=== PATIENT | male | born 1960 | race African-American/Black ===

== ENCOUNTER 2021-06-07 12:23 | Inpatient (IN) | payer OTHER ==
[2021-06-07] VITALS (8 sets, daily range): BP systolic 111–148; BP diastolic 40–100
[~2021-06-07] VITALS: Ht 175.3 cm; Wt 63.4 kg
--- NOTE | ~2021-06-07 | EMS ---
[address] [address] EMS Patient Care Report Name: ELVIE GARNER Room #: REG HARRY Ramos#: [id number] Admission: 06/07/21 Attend Phys: Discharge: Date of : 58 Report #: [id number] THIS REPORT FOR: //name// Report Transmitted: 06/07/2021 14:33 EMS Care Summary [place], [place]/[facility] Incident [id number] @ 06/07/2021 11:31 Incident Location 25500 IDAY 200 A Patient ELVIE GARNER Male, 61 Years 1960 Patient Address [address] [place] [address] [place] [address] Patient History None Reported, Patient Allergies No known allergies, Chief Complaint syncope Disposition Transported No Lights/[place] Dispatch Reason Falls Transported To [facility] Narrative pt was standing at the bathroom sink, brushing his teeth and had a syncopal episode. bystander reports pt hit his head, no obv trauma. pt is found on floor , awake but very confused, by [place] crew. they moved him to [place], where we find him on arrival. pt is diaphoretic and hypotensive, BP 88/60. he opens eyes to verbal but is confused and unable to follow simple commands. pt [facility] [address] [place] [address] EMS Patient Care Report Name: ELVIE GARNER Room #: MATT Ramos#: [id number] Admission: 06/07/21 Attend Phys: Discharge: Date of : 58 Report #: [id number] denies CP or SOB, no recent illness. pt moved to cot and feet elevated. pt loses control of bowel once moved to cot. tx as listed on flow chart. transport non emergency to pt choice, [facility]. pt BP improves during transport, pt more coherent. report to staff on arrival, rm 1. Initial Vitals @12:05P: 88,R: 18,BP: 90/59,Pain: 0/10,GCS: 13,Glucose: 130,Revised Trauma: 12, @12:13P: 87,R: 18,BP: 108/83,Pain: 0/10,GCS: 14,SpO2: 98,Revised Trauma: 12, Assessments @11:46MENTAL:Confused,Place Oriented,Person Oriented,SKIN:Diaphoresis,HEENT:LUNG SOUNDS:ABDOMEN:PELVIS//GI:Incontinence,EXTREMITIES:PULSE:Radial: 2+ Normal,NEURO:Other,@12:12MENTAL:Time Oriented,Person Oriented,Place Oriented,Event Oriented,SKIN:HEENT:LUNG SOUNDS:ABDOMEN:PELVIS//GI:EXTREMITIES:PULSE:NEURO: Impression Syncope / Fainting Procedures @11:46 ALS Assessment Response: Unchanged @PTA3-Lead ECG Response: Unchanged @12:00 IV Therapy - Saline Lock 10cc (20 ga) Site: Antecubital-Right Response: UnchangedSucceeded @11:48 Stretcher Response: Unchanged @11:58 12-Lead ECG Response: Unchanged @12:00 IV Therapy - Saline Lock 0cc (20 ga) Site: Antecubital-Left Response: UnchangedFailed @12:03 Oxygen FlowRate: 15 Device: Non Re-breather Mask (NRB) Response: UnchangedSucceeded Timeline FIRE PILOT,3-Lead ECG,Response: Unchanged 11:29,Call Received 11:29,Dispatch Notified 11:31,Dispatched 11:34,En Route 11:43,On Scene 11:46,At Patient 11:46,ALS Assessment,Response: Unchanged 11:48,Stretcher,Response: Unchanged 11:58,12-Lead ECG,Response: Unchanged 12:00,IV Therapy - Saline Lock 0cc 20 ga Site: Antecubital-Left,Response: UnchangedFailed, [address] [address] EMS Patient Care Report Name: GARNER,ELVIE Room #: REG HARRY Ramos#: [id number] Admission: 06/07/21 Attend Phys: Discharge: Date of : 58 Report #: [id number] 12:00,IV Therapy - Saline Lock 10cc 20 ga Site: Antecubital-Right,Response: UnchangedSucceeded, 12:02,Depart Scene 12:03,Oxygen FlowRate: 15 Device: Non Re-breather Mask (NRB) Response: UnchangedSucceeded, 12:05,BP: 90/59 M,PULSE: 88,RR: 18 R,SPO2: Ox,ETCO2: ,B,PAIN: 0,GCS: 13, 12:13,BP: 108/83 M,PULSE: 87,RR: 18 R,SPO2: 98 Ox,ETCO2: ,BG: ,PAIN: 0,GCS: 14, 12:19,At Destination 12:44,Call Closed Disclaimer v1.1 Copyright 2020 [employer] This EMS Care Summary contains data elements from the applicable legal record (which may be displayed differently). It is designed to provide pertinent information for the following purposes: continuity of care, clinical quality, and state data reporting. The complete legal record is available to ED staff and administrators of the receiving hospital in [employer] Patient Tracker. All data is provided "as is."
--- NOTE | 2021-06-07 12:43 | NUR ---
PT SATS 75% ON NC 6L, NRB PLACED ON PATIENT AT 15L/MIN DR ANN AT [facility] AND RT PAGED. PT SLOWLY INCREASED AND IS CURRENTLY AT 97% ON NRB 15L/MIN
[2021-06-07 12:50] LABS: BE(vivo) -6.4 mmol/L (-2 to +3); HCO3 19.6 mmol/L (22.0-26.0); PCO2 40.8 mmHg (35.0-45.0); PO2 194.8 mmHg (80.0-100.0); sO2 99.2 % (92.0-98.0)
[2021-06-07 13:19] LABS: ABSOLUTE NEUTROPHILS 3.2 thou/uL (1.4-8.2); BASOPHILS 0.7 % (0.0-2.0); EOSINOPHILS 1.7 % (0.0-3.0); HEMATOCRIT 27.7 % (42.0-52.0); LYMPHOCYTES 40.7 % (24.0-44.0); MCH 57.3 pg (26.0-34.0); MCHC 54.3 g/dL (28.0-37.0); MCV 105.5 fL (80.0-100.0); MONOCYTES 6.4 % (1.0-8.0); PLATELET COUNT 159 thou/uL (150-400); POLYS 50.5 % (36.0-66.0); RBC 2.62 mil/uL (4.50-6.00); RDW 17.6 % (10.5-14.5); WBC 6.2 thou/uL (4.0-11.0)
[2021-06-07 13:36] LABS: D-DIMER 28.59 ug/mLFEU (0.19-0.50); PROTIME 10.9 Seconds (10.5-12.1)
[2021-06-07 13:41] LABS: CALCIUM 8.2 mg/dL (8.5-10.1); CREATININE 0.9 mg/dL (0.7-1.3); POTASSIUM 5.4 mmol/L (3.5-5.1)
[2021-06-07 13:46] LABS: TOTAL BILIRUBIN 0.3 mg/dL (0.2-1.0); TOTAL PROTEIN 6.9 g/dL (6.4-8.2)
[2021-06-07 14:08] LABS: ANISOCYTOSIS 2+; MACROCYTES 2+; POIKILOCYTOSIS 2+
[2021-06-07 16:05] LABS: HEMATOCRIT 36.1 % (42.0-52.0); HEMOGLOBIN 13.2 gm/dL (14.0-18.0); MCH 38.2 pg (26.0-34.0); MCHC 36.5 g/dL (28.0-37.0); MCV 104.8 fL (80.0-100.0); RBC 3.44 mil/uL (4.50-6.00); RDW 17.8 % (10.5-14.5); WBC 8.5 thou/uL (4.0-11.0)
[2021-06-07] MEDS ORDERED: NOHOMEMEDICATIONS (16:36)
[2021-06-07 18:58] LABS: INR 1.13; PROTIME 12.2 Seconds (10.5-12.1)
[2021-06-07 19:00] LABS: FOLIC ACID 7.4 ng/mL (8.6-58.9)
[2021-06-07 19:24] LABS: PHOSPHORUS 3.8 mg/dL (2.6-4.7)
--- NOTE | 2021-06-07 19:50 | NUR ---
61 [address]/O PT OF DR WALSH ADMITTED TO ICU VIA CART FROM ER WITH DX OF PUL EMBILUS AWAKE AND ALERT NEURO INTACT. HEPARIN GTT PER PROTOCAL. DENIES DISCOMFORT HF NC AT 12 LITERS. LUNGS CLEAR AND DIMINISHED O2 SAT 100 %
[2021-06-08] VITALS (17 sets, daily range): BP systolic 115–148; BP diastolic 73–96
[2021-06-08 04:45] LABS: ALBUMIN 2.2 g/dL (3.4-5.0); CALCIUM 7.1 mg/dL (8.5-10.1); CREATININE 0.7 mg/dL (0.7-1.3); MAGNESIUM 1.4 mg/dL (1.8-2.4); TOTAL BILIRUBIN 0.5 mg/dL (0.2-1.0); TOTAL PROTEIN 4.9 g/dL (6.4-8.2)
[2021-06-08 04:52] LABS: POTASSIUM 3.8 mmol/L (3.5-5.1)
--- NOTE | 2021-06-08 06:00 | NUR ---
DECREASED TO 7 L HF NC FIO2 100 %
--- NOTE | 2021-06-08 06:00 | NUR ---
SLEPT AT INTERVALS TONIGHT. VSS APTT THERAPUTIC VOIDED 800 CC REMAINS ON HEPARIN GTT AT 9.3 CC/HR ISOLATIONB FOR INFLUENZA A AND B PROGRESSING TOWARD GOALS WILL CONT TO MONITOR
[2021-06-08 08:36] LABS: HEMATOCRIT 36.3 % (42.0-52.0); HEMOGLOBIN 11.5 gm/dL (14.0-18.0); MCH 30.4 pg (26.0-34.0); RBC 3.77 mil/uL (4.50-6.00); RDW 17.8 % (10.5-14.5); WBC 8.4 thou/uL (4.0-11.0)
[2021-06-08 08:37] LABS: MCV 96.3 fL (80.0-100.0)
[2021-06-08 08:43] LABS: MCHC 31.6 g/dL (28.0-37.0)
--- NOTE | 2021-06-08 18:41 | NUR ---
PT TRANSFERED FROM ICU IN STABLE CONDITION. SCORED 0 ON CIWA. NO CONCERNS AT THIS TIME.
[2021-06-09] VITALS (7 sets, daily range): BP systolic 131–172; BP diastolic 86–115
[2021-06-09 02:17] LABS: URINE BILIRUBIN 1+ (Negative); URINE BLOOD TRACE (Negative); URINE CLARITY CLEAR; URINE COLOR YELLOW; URINE GLUCOSE-RANDOM* NEGATIVE (Negative); URINE KETONES TRACE (Negative); URINE LEUKOCYTES-REFLEX NEGATIVE (Negative); URINE NITRITE-REFLEX NEGATIVE (Negative); URINE PROTEIN (DIPSTICK) TRACE (Negative); URINE SPECIFIC GRAVITY >= 1.030 (1.005-1.035)
[2021-06-09 02:25] LABS: AMP/METHAMP Negative (Negative); BARBITURATES Negative (Negative); BENZODIAZEPINES Negative (Negative); COCAINE Negative (Negative); METHADONE Negative (Negative); OPIATES Negative (Negative); PCP Negative (Negative)
[2021-06-09 05:23] LABS: HEMATOCRIT 22.4 % (42.0-52.0); HEMOGLOBIN 11.7 gm/dL (14.0-18.0); MCH 58.1 pg (26.0-34.0); MCHC 52.4 g/dL (28.0-37.0); RBC 2.02 mil/uL (4.50-6.00); RDW 17.6 % (10.5-14.5)
[2021-06-09 05:38] LABS: MCV 110.8 fL (80.0-100.0)
[2021-06-09 05:44] LABS: ALBUMIN 2.3 g/dL (3.4-5.0); CREATININE 0.9 mg/dL (0.7-1.3); MAGNESIUM 1.5 mg/dL (1.8-2.4); POTASSIUM 3.6 mmol/L (3.5-5.1); TOTAL BILIRUBIN 0.6 mg/dL (0.2-1.0); TOTAL PROTEIN 5.4 g/dL (6.4-8.2)
--- NOTE | 2021-06-09 06:12 | NUR ---
ASSESSMENTS CHARTED. PATIENT RESTING IN BED DURING SHIFT. PT ON HEPARIN DRIP 2/2 BILAT PULMONARY EMBOLUS. (+) INFLUENZA A & B. DRUG SCREEN CAME BACK POSITIVE FOR MARIJUANA. DENIES PAIN. HTN DURING SHIFT.
--- NOTE | 2021-06-09 07:36 | EKG ---
[address] [place] [address] ELECTROCARDIOGRAM REPORT Name: ELVIE GARNER Room #: 209-P ADM IN M.R.#: [id number] Admission: 06/07/21 Attend Phys: Travis Cochran MD Discharge: Date of : 58 Report #: [id number] [facility] ED Test Date: 2021-06-07 Test Time: 12:28:05 Pat Name: ELVIE GARNER Department: Room: 209 Gender: M Automatic Equipment Technician: cathryn : 1960 Requested By: Wilfredo Santiago Order Number: [id number] MD: Bud Bahena Measurements Intervals [place] Rate: 123 P: 97 AK: 152 QRS: 93 QRSD: 98 T: 267 QT: 279 QTc: 399 Interpretive Statements Sinus tachycardia Paired ventricular premature complexes Consider right atrial enlargement Probable RVH w/ secondary repol abnormality Baseline wander in lead(s) II,III,aVR,aVF No previous ECG available for comparison Electronically Signed On 06-09-2021 7:35:59 OUTPATIENT PHARMACY MANAGER by Bud Bahena [email or web address] <ELECTRONICALLY SIGNED> By: Bud Bahena MD, [facility] 06/09/21 0735 1228 1228 Bud Bahena MD, [facility] /EPI
--- NOTE | 2021-06-09 09:27 | 2DMMODE ---
[facility] [place] [address] 2 D/M-MODE ECHOCARDIOGRAM Name: ELVIE GRANER Room #: 209-P ADM IN M.R.#: [id number] Admission: 06/07/21 Attend Phys: Travis Cochran MD Discharge: Date of : 58 Report #: [id number] THIS REPORT FOR: cc: CAITLYN - Beth family physician/PCP CAITLYN - No family physician/PCP Bdu Bahena MD [facility] ~ APPROVED REPORT Study performed: 06/09/2021 09:39:57 EXAM: Comprehensive 2D, Doppler, and color-flow Echocardiogram Patient Location: Bedside Room #: 209 Status: routine BSA: 1.77 HR: 56 bpm BP: 158/102 mmHg Rhythm: NSR Other Information Study Quality: Fair Technically limited study due to COPD, thin body habitus. Best images subcostal.. Indications Bilateral pulmonary embolism. 2D Dimensions RVDd: 51.46 mm IVSd: 8.91 (7-11mm) LVOT Diam: 19.81 (18-24mm) LVDd: 39.36 mm PWd: 9.42 (7-11mm) LVDs: 28.95 (25-40mm) Aortic Root: 35.31 mm Aortic Valve AoV Peak Mario Alberto.: 0.89 m/s AO Peak Gr.: 4.17 mmHg LVOT Max P.67 mmHg LVOT Max V: 0.65 m/s MALLORIE Vmax: 2.24 cm2 Mitral Valve E/A Ratio: 0.8 MV Decel. Time: 176.43 ms [facility] [address] [place] [address] 2 D/M-MODE ECHOCARDIOGRAM Name: HEATHER GARNERSTON Room #: 209-P ADM IN M.R.#: [id number] Admission: 06/07/21 Attend Phys: Travis Cochran MD Discharge: Date of : 58 Report #: [id number] MV E Max Mario Alberto.: 0.64 m/s MV A Mario Alberto.: 0.83 m/s MV PHT: 51.16 ms IVRT: 101.50 ms Pulmonary Valve PV Peak Mario Alberto.: 0.62 m/s PV Peak Gr.: 1.51 mmHg Tricuspid Valve TR Peak Mario Alberto.: 3.89 m/s RAP Estimate: 15.00 mmHg TR Peak Gr.: 60.49 mmHg PA Pressure: 75.00 mmHg Left Ventricle The left ventricle is normal size. There is normal left ventricular wall thickness. Left ventricular systolic function is normal. LVEF is 50-55%. Mild diastolic dysfunction is present (impaired relaxation pattern). Right Ventricle Right ventricle is dilated. Right ventricle is hypokinetic. Atria The left atrium size is normal. Right atrium is dilated. Aortic Valve The aortic valve is normal in structure. No aortic regurgitation is present. There is no aortic valvular stenosis. Mitral Valve The mitral valve is normal in structure. Mild to moderate mitral regurgitation. No evidence of mitral valve stenosis. Tricuspid Valve The tricuspid valve is normal in structure. Mild to moderate tricuspid regurgitation. Severe pulmonary hypertension (Estimated PAP is 70-75mmHg). Pulmonic Valve The pulmonary valve is normal in structure. There is no pulmonic valvular regurgitation. Great Vessels The aortic root is normal in size. Ascending aorta is not well visualized. IVC is dilated and collapses <50% with [facility] [address] [place] [address] 2 D/M-MODE ECHOCARDIOGRAM Name: PATSYELVIE Room #: 209-P ADM IN M.R.#: [id number] Admission: 06/07/21 Attend Phys: Travis Cochran MD Discharge: Date of : 58 Report #: [id number] inspiration. Pericardium There is no pericardial effusion. <Conclusion> Technically a difficult study Normal left exercise/wall thickness Ejection fraction 55% Right ventricle not well seen but appears to be mildly dilated/hypokinetic Normal atrial size Normal aortic valve structure and function Mild to moderate mitral valve insufficiency Mild to moderate tricuspid valve insufficiency Severe pulmonary hypertension Pulmonary systolic pressure estimated 70-75 mmHg No pericardial effusion Normal aortic root size <ELECTRONICALLY SIGNED> By: Bud Bahena MD, [facility] 06/09/21926 6 6 Bud Bahena MD, FACC /INF
--- NOTE | 2021-06-09 17:15 | NUR ---
PATIENT ASSESMENTS CHARTED. PATIENT COOPERATING WITH PT AND TRANSITIONED TO ORAL ANTICOAGULANTS TODAY. PATIENT IN [employer].
--- NOTE | 2021-06-09 17:55 | NUR ---
Met with patient who resides in [facility]. Patient uses no dme no oxygen. he works on/off. Family assists with payment of rent and groceries. Patient has no PCP. Amaya brandt met clinic information for review. [facility] following.
[2021-06-10 03:30] VITALS: BP 151/102; BP 162/106
[2021-06-10 05:36] LABS: HEMATOCRIT 23.7 % (42.0-52.0); HEMOGLOBIN 11.9 gm/dL (14.0-18.0); MCH 52.2 pg (26.0-34.0); RBC 2.27 mil/uL (4.50-6.00); RDW 17.2 % (10.5-14.5); WBC 5.8 thou/uL (4.0-11.0)
[2021-06-10 05:52] LABS: MCV 104.3 fL (80.0-100.0)
[2021-06-10 08:20] VITALS: BP 154/63
[2021-06-10] MEDS ORDERED: OSELTAMIVIR PHO75 MG PO (11:12)
[2021-06-10] MEDS ORDERED: XARELTO15 MG PO (11:12)
[2021-06-10] MEDS ORDERED: XARELTO10 MG PO (11:12)
[2021-06-10 12:10] VITALS: BP 158/108
[2021-06-10 12:26] VITALS: BP 154/63
--- NOTE | 2021-06-10 13:48 | NUR ---
DISCHARGED PATIENT. EXPLAINED MEDS AND UPCOMING APPOINTMENTS TO PATIENT. PATIENT STATED HE DID NOT HAVE ANY QUESTIONS. PT TAKING OUT VIA WHEEL CHAIR.
--- NOTE | 2021-06-10 15:57 | NUR ---
patient to ne home. Vouched medication in amount of $1129. Rec approval from Ayah Brown. Sp with patient how important it is to f/u with [facility] or [facility] as his medications are very expensive. Patient has resources for clinics.
== END 2021-06-10 13:56 | disposition home or self-care (01) | DRG 175 ==
LOC: ER 12:23 → EROBS 16:36 → ICU 19:23 → 2N 06-08 15:47
PROVIDERS: Emergency Medicine; Hospitalist; ADMIT Internal Medicine; ATTEND Internal Medicine
PROC: 5A0945A Assistance with Respiratory Ventilation, 24-96 Consecutive Hours, High Flow/Velocity Cannula (ICD-10-PCS; principal; 2021-06-07)
DX: I26.99 Other pulmonary embolism without acute cor pulmonale (principal); J10.00 Influenza due to other identified influenza virus with unspecified type of pneumonia; G93.41 Metabolic encephalopathy; J96.01 Acute respiratory failure with hypoxia; Z20.822 Contact with and (suspected) exposure to COVID-19; F17.210 Nicotine dependence, cigarettes, uncomplicated
CPT/HCPCS: 10078; 10081; 10797